=== PATIENT | female | born 1950 | race Asian ===

== ENCOUNTER 2017-01-11 06:07 | Day surgery (SDC) | payer MEDICARE, BC ==
[2017-01-11] MEDS ORDERED: Lactated Ringers 1,000 ML IV SCH (07:15)
[2017-01-11] MEDS ORDERED: Propofol 200 MG/20 ML SDV ONE (07:36)
[2017-01-11] MEDS ORDERED: fentaNYL 100 MCG/2 ML SDV ONE (07:36)
[2017-01-11] MEDS ORDERED: Midazolam 1 MG/ML 2 ML SDV ONE (07:36)
[2017-01-11 10:22] VITALS: BP 112/66
--- NOTE | 2017-01-11 11:27 | OR ---
DATE OF PROCEDURE: 01/11/2017 PREOPERATIVE DIAGNOSIS: History of colon polyps. POSTOPERATIVE DIAGNOSIS: Unremarkable colonoscopy. PROCEDURE: Colonoscopy to the cecum. SURGEON: Varun Barton MD ANESTHESIA: IV anesthesia with monitored anesthesia care. INDICATION: This 67-year-old female is referred for a colonoscopy because of a history of colon polyps in the remote past. Her last colonoscopic exam was done in 2000. I counseled her for a colonoscopy with possible biopsy and/or polypectomy including risks and alternatives, and she gave her informed consent to proceed. DESCRIPTION OF PROCEDURE: The patient was placed in the left lateral decubitus position. IV anesthesia was administered by the Anesthesia Service. Time-out was held. A rectal exam was performed, which was unremarkable. The flexible video Olympus colonoscope was introduced through her anus, up her rectum, and out her colon all the way to the cecum. Once the cecum was reached, the scope was slowly withdrawn examining the mucosa throughout. No mucosal abnormalities were noted. The scope was retroflexed in the rectum with the distal rectum appearing unremarkable. The scope was straightened and removed. She tolerated the procedure well. Varun Barton MD /[id number]
== END 2017-01-11 10:10 | disposition home or self-care (01) ==
LOC: JP.SDS 06:07
PROVIDERS: ATTEND Surgery
DX: Z12.11 Encounter for screening for malignant neoplasm of colon (principal); Z86.010 Personal history of colon polyps; I10 Essential (primary) hypertension; E78.5 Hyperlipidemia, unspecified; Z88.8 Allergy status to other drugs, medicaments and biological substances
CPT/HCPCS: G0105; J2250; J2704; J3010; J7120

== ENCOUNTER 2022-02-26 14:21 | Emergency (ER) | payer MEDICARE, BC ==
[2022-02-26 18:01] VITALS: BP 158/64; PULSE 68
== END 2022-02-26 19:45 | disposition home or self-care (01) ==
LOC: JP.ED 14:21
DX: R53.1 Weakness (principal); I10 Essential (primary) hypertension; Z79.899 Other long term (current) drug therapy; Z20.822 Contact with and (suspected) exposure to COVID-19
CPT/HCPCS: 36415; 80048; 81001; 83735; 84443; 84484; 85025; 86618; 93005; 99285; U0002; 93010; 99284

== ENCOUNTER 2022-03-16 08:04 | Day surgery (SDC) | payer MEDICARE, BC ==
[2022-03-16] MEDS ORDERED: Propofol 200 MG/20 ML SDV ONE (08:14)
[2022-03-16] MEDS ORDERED: fentaNYL 100 MCG/2 ML SDV ONE (08:14)
[2022-03-16] MEDS ORDERED: Midazolam 1 MG/ML 2 ML SDV ONE (08:14)
[2022-03-16] MEDS ORDERED: Lactated Ringers 1,000 ML IV SCH (09:00)
[2022-03-16 11:19] VITALS: BP 123/90; PULSE 64
== END 2022-03-16 11:10 | disposition home or self-care (01) ==
LOC: JP.SDS 08:04
PROVIDERS: ATTEND Family Medicine
DX: Z12.11 Encounter for screening for malignant neoplasm of colon (principal); I12.9 Hypertensive chronic kidney disease with stage 1 through stage 4 chronic kidney disease, or unspecified chronic kidney disease; N18.30 Chronic kidney disease, stage 3 unspecified; E78.5 Hyperlipidemia, unspecified; K21.9 Gastro-esophageal reflux disease without esophagitis; Z86.010 Personal history of colon polyps; Z88.8 Allergy status to other drugs, medicaments and biological substances; Z79.810 Long term (current) use of selective estrogen receptor modulators (SERMs); Z79.899 Other long term (current) drug therapy; Z79.83 Long term (current) use of bisphosphonates; Z80.0 Family history of malignant neoplasm of digestive organs
CPT/HCPCS: G0105; J2250; J2704; J3010; J7120